=== PATIENT | female | born 1980 | race African-American/Black ===

== ENCOUNTER 2022-07-30 20:08 | Emergency (ER) | payer OTHER, SELFPAY ==
[2022-07-30 20:10] VITALS: BP 141/86; PULSE 69; RESP 16; TEMP 36.4; O2SAT 100
--- NOTE | 2022-07-30 20:36 | ED.GENADULT ---
HPI - General Adult General Chief complaint: Unspecified Stated complaint: R dental pain Time Seen by Provider: 07/30/22 20:31 Source: patient Mode of arrival: ambulatory Limitations: no limitations History of Present Illness HPI narrative: This is a 41-year-old female that presents to the emergency department for dentalgia ongoing over the last couple of days. Reports a right lower molar that has been hurting. She has taken Tylenol with little relief. Denies fever, erythema, or edema. Related Data Allergies Allergy/AdvReac Type Severity Reaction Status Date / Time No Known Allergies Allergy Verified 07/30/22 20:09 Review of Systems Review of Systems: CONSTITUTIONAL: Denies fever ENT: Reports dentalgia All systems reviewed & are unremarkable except as noted in HPI and below PMFSH Past Medical History Medical History (Updated 07/30/22 @ 20:38 by Dawna Machado PA-C) No active medical problems Social History Social History (Updated 07/30/22 @ 20:37 by Dawna Machado PA-C) Smoking status: Never smoker Exam Narrative: GENERAL: Well-appearing, well-nourished, and in no acute distress. HEAD: Normocephalic, atraumatic. EYES: EOMI. ENT: Nares clear, no rhinorrhea or epistaxis. Mucous membranes moist. Oropharynx without tonsillar hypertrophy exudate or other lesions. Tooth #32 is broken, no surrounding erythema or fluctuance to suggest abscess NECK: Supple. No adenopathy or masses. CHEST: Clear to auscultation. No respiratory distress. No wheezes rales or rhonchi HEART: Regular rate and rhythm. No murmur heard. Normal peripheral pulses. EXTREMITIES: Normal range of motion. No edema. SKIN: Warm, dry, no rash. NEURO: No focal deficits. Alert and oriented x3. PSYCH: Normal mood and affect Course Vital Signs Vital signs: Vital Signs Temperature 97.6 F 07/30/22 20:10 Pulse Rate 69 07/30/22 20:10 Respiratory Rate 16 07/30/22 20:10 Blood Pressure 141/86 H 07/30/22 20:10 Pulse Oximetry 100 07/30/22 20:10 Temperature 97.6 F 07/30/22 20:10 Pulse Rate 69 07/30/22 20:10 Respiratory Rate 16 07/30/22 20:10 Blood Pressure 141/86 H 07/30/22 20:10 Pulse Oximetry 100 07/30/22 20:10 Medical Decision Making MDM Narrative Medical decision making narrative: This is a 41-year-old female that presents to the emergency department for toothache ongoing over the last couple of days. She is afebrile and nontoxic-appearing. She is neurologically intact. No evidence for abscess on exam. Patient will be started on oral antibiotics and was instructed to have close follow-up with a dentist. She was given warnings to return to the ER Vital Signs Vital Signs: Vital Signs Temperature 97.6 F 07/30/22 20:10 Pulse Rate 69 07/30/22 20:10 Respiratory Rate 16 07/30/22 20:10 Blood Pressure 141/86 H 07/30/22 20:10 Pulse Oximetry 100 07/30/22 20:10 Temperature 97.6 F 07/30/22 20:10 Pulse Rate 69 07/30/22 20:10 Respiratory Rate 16 07/30/22 20:10 Blood Pressure 141/86 H 07/30/22 20:10 Pulse Oximetry 100 07/30/22 20:10 Critical Care Time Critical Care Time Critical Care Time: No Discharge Plan Discharge Clinical Impression: Toothache Patient Disposition: Home, Self-Care Condition: Stable Instructions: Antibiotic Form, Toothache (ED) Additional Instructions: Return to the Emergency Department if you experience fever >101, increasing swelling and redness of your tooth, or any other symptoms that are concerning to you Take antibiotic as prescribed. Tylenol or Ibuprofen as needed for pain. You can apply a dab of clove oil to a Qtip and apply to the tooth to help numb the area Follow up with your dentist Prescriptions: New amoxicillin-pot clavulanate 875-125 mg tablet 1 tablet PO Q12H 7 Days Qty: 14 0RF Follow-up/Referrals: PHYSICIAN,[employer] [facility] [Primary Care Provider] -
[2022-07-30] MEDS: KETOROLAC 30 MG/ML VIAL (*BKC) IM (20:48)
== END 2022-07-30 20:52 | disposition home or self-care (01) ==
PROVIDERS: Emergency Provider Emergency Medicine
DX: K08.89 Other specified disorders of teeth and supporting structures (principal)
CPT/HCPCS: 96372; 99283; J1885

== ENCOUNTER 2023-03-20 11:27 | Emergency (ER) | payer SELFPAY ==
--- NOTE | ~2023-03-20 | XR_ITS ---
XR forearm RT 2V 03/20/2023 12:00 INDICATION: Right arm pain PROCEDURE: 2 views right forearm COMPARISON: No prior studies for comparison. FINDINGS: Fracture, dislocation or subluxation is not identified. The soft tissues appear within norm al limits. No foreign bodies are identified. IMPRESSION: 1: NO ACUTE BONE OR JOINT ABNORMALITY IDENTIFIED. Reviewed, dictated and finalized at location []
[2023-03-20 11:34] VITALS: BP 139/77; PULSE 78; RESP 16; TEMP 36.1; O2SAT 99
--- NOTE | 2023-03-20 12:09 | ED.UPPEXIN ---
HPI - Extremity Injury (Upper) General Chief Complaint: Extremity Injury, Upper Stated Complaint: right wrist pain Time Seen by Provider: 03/20/23 11:50 History of Present Illness HPI narrative: 42-year-old female reports for evaluation of right wrist pain extending up into her forearm x2 to 3 days. 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 She states she does not recall a specific injury to her wrist, however it began bothering her 3 days ago, worse with extension of her thumb. She does report paresthesias overlying her palm. Denies other pain in the remainder of extremity. No swelling. She has not taken anything for pain. Related Data Allergies Allergy/AdvReac Type Severity Reaction Status Date / Time No Known Allergies Allergy Verified 03/20/23 12:13 Review of Systems Review of Systems: CONSTITUTIONAL: Denies fever, chills EYES: Denies visual changes, redness, or discharge. ENT: Denies rhinorrhea, congestion, sore throat, or otalgia. CARDIOVASCULAR: Denies chest pain, palpitations, or edema. RESPIRATORY: Denies cough or dyspnea. GASTROINTESTINAL: Denies abdominal pain, nausea, vomiting, or diarrhea. GENITOURINARY: Denies dysuria or hematuria. SKIN: Denies rash or itching. MUSCULOSKELETAL: See HPI NEUROLOGIC: Denies headache, numbness, dizziness, or weakness. PSYCHIATRIC: Denies anxiety or depression. [facility] Past Medical History Medical History No active medical problems Social History Social History Smoking status: Never smoker Exam Narrative: GENERAL: Well-appearing, in no acute distress. HEAD: Normocephalic NECK: Supple. CHEST: No respiratory distress. Clear to auscultation, no adventitious breath sounds. HEART: Regular rate and rhythm. No murmur heard. Normal peripheral pulses. ABDOMEN: Soft, nontender, normal active bowel sounds. EXTREMITIES: Right wrist with tenderness over the adductor pollicis longus extending into the distal aspect of the radius without overlying skin changes. Full range of motion of fingers and wrist. Sensation intact throughout. Cap refill less than 2. Radial pulse 2+. No overlying skin changes. Positive Brenda's test, positive Tinel's sign and Phalen maneuver SKIN: Warm, dry, no rash. NEURO: No focal deficits. Alert and oriented x3. PSYCH: Normal mood and affect. Course Vital Signs Vital signs: Vital Signs Temperature 97 F L 03/20/23 11:34 Pulse Rate 78 03/20/23 11:34 Respiratory Rate 16 03/20/23 11:34 Blood Pressure 139/77 03/20/23 11:34 Pulse Oximetry 99 03/20/23 11:34 Temperature 97 F L 03/20/23 11:34 Pulse Rate 78 03/20/23 11:34 Respiratory Rate 16 03/20/23 11:34 Blood Pressure 139/77 03/20/23 11:34 Pulse Oximetry 99 03/20/23 11:34 MDM - Extremity Injury (Upper) MDM Narrative Medical decision making narrative: 42-year-old female reports for evaluation of right wrist pain extending up into her forearm x2 to 3 days. 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 Vital stable. Exam reveals tenderness along the extensor pollicis longus, positive Brenda's, positive Tinel's and Phalen's. She is neurovascularly intact. X-rays without acute bone or joint abnormality. Exam consistent with de Quervain's tenosynovitis versus carpal tunnel. Advised patient to obtain a prefabricated thumb spica at pharmacy to wear daily and at night, and to remove multiple times/day for ROM. Naproxen sent to pharmacy. Encouraged RICE and close follow-up with PCP within the following week. Referral provided. Strict ED return precautions discussed. Patient agrees with the plan and verbalized understanding. Discharged in stable condition. Medical Records Attestation: I reviewed the patient's medical records. [place]
[2023-03-20] MEDS: IBUPROFEN 600 MG TABLET PO (12:17)
[2023-03-20] MEDS: ACETAMINOPHEN 500 MG TABLET 1000 MG PO (12:18)
== END 2023-03-20 12:43 | disposition home or self-care (01) ==
PROVIDERS: Emergency Provider Physician Assistant
DX: M65.4 Radial styloid tenosynovitis [de Quervain] (principal)
CPT/HCPCS: 73090; 99283; A9270